=== PATIENT | male | born 1960 | race Two or more races ===

== ENCOUNTER 2016-11-28 11:31 | Day surgery (SDC) | payer OTHER ==
[~2016-11-28 11:31] MED LIST: FENTANYL CITRATE 50 MCG/ML SOL ONE; LIDOCAINE HCL 1% MPF SOL ONE; MIDAZOLAM 2 MG/2 ML SOL ONE; PROPOFOL 10 MG/ML EMU IV ONE
[2016-11-28] MEDS ORDERED: BUPIVACAINE LIPOSOME 20 ML SUS ONE (12:31)
[2016-11-28] MEDS ORDERED: METOCLOPRAMIDE HYDROCHLORIDE 5 MG/ML SOL ONE (13:08)
[2016-11-28] MEDS ORDERED: ONDANSETRON HCL 4 MG/2 ML SOL ONE (13:08)
[2016-11-28] MEDS ORDERED: FENTANYL CITRATE 50 MCG/ML SOL ONE (13:10)
[2016-11-28] MEDS ORDERED: DEXAMETHASONE 20 MG/5 ML (4 MG/ML SOL) ONE (13:12)
[2016-11-28] MEDS ORDERED: HYDROMORPHONE HCL 2 MG/ML 1 ML SOL ONE (13:15)
[2016-11-28] MEDS ORDERED: NALOXONE HYDROCHLORIDE 0.4 MG/ML SOL ONE (14:23)
[2016-11-28 14:43] VITALS: RESP 18
[2016-11-28 15:00] VITALS: TEMP 97.4
[2016-11-28 15:17] VITALS: BP 101/56; PULSE 61; O2SAT 92
== END 2016-11-28 16:40 | disposition home or self-care (01) ==
LOC: SURG 11:31
PROVIDERS: ATTEND Surgery
DX: K60.3 Anal fistula (principal)
CPT/HCPCS: J1100; J1170; J2250; J2310; J2405; J2765; J3010

== ENCOUNTER 2017-09-11 10:29 | Day surgery (SDC) | payer OTHER ==
[2017-09-11] MEDS ORDERED: PROPOFOL 10 MG/ML EMU IV ONE ×2 (10:51→13:14)
[2017-09-11] MEDS ORDERED: FENTANYL 100MCG/2ML SOL ONE (10:51)
[2017-09-11] MEDS ORDERED: MIDAZOLAM 2 MG/2 ML SOL ONE (10:51)
[2017-09-11] MEDS ORDERED: LIDOCAINE HCL 1% MPF SOL ONE (10:51)
[2017-09-11] MEDS ORDERED: ONDANSETRON HCL 4 MG/2 ML SOL ONE (10:55)
[2017-09-11] MEDS ORDERED: BUPIVACAINE/EPI 0.5% 10 ML SOL INFIL ONE (11:54)
[2017-09-11] MEDS ORDERED: BUPIVACAINE LIPOSOME 20 ML SUS ONE (11:54)
[2017-09-11] MEDS ORDERED: NALOXONE HYDROCHLORIDE 0.4 MG/ML SOL ONE (13:14)
[2017-09-11 13:40] VITALS: TEMP 97.8
[2017-09-11 14:36] VITALS: RESP 20; O2SAT 94
[2017-09-11 15:53] VITALS: BP 113/75; PULSE 80
== END 2017-09-11 15:30 | disposition home or self-care (01) ==
LOC: SURG 10:29
PROVIDERS: ATTEND Surgery
DX: K60.3 Anal fistula (principal)
CPT/HCPCS: 46275; J2001; J2250; J2310; J2405; J2704 ×2; J3010 ×2

== ENCOUNTER 2018-06-07 18:48 | Emergency (ER) | payer OTHER ==
[2018-06-07] MEDS ORDERED: CLONIDINE 0.1 MG TAB PO ONE (19:13)
[2018-06-07] MEDS ORDERED: CLONIDINE 0.1 MG TAB ONE (19:15)
[2018-06-07 19:34] LABS: BASOPHILS % (AUTO) 1 % (0-3); EOSINOPHILS % (AUTO) 3 % (0-9); HEMATOCRIT 46 % (39-53); HEMOGLOBIN 15.1 gm/dl (13.5-17.7); LYMPHOCYTES % (AUTO) 35.06 % (10-50); MEAN CORPUSCULAR HEMOGLOBIN 31.4 pg (27.0-32.0); MEAN CORPUSCULAR HGB CONC 32.8 gm/dl (32.0-36.0); MEAN CORPUSCULAR VOLUME 96 fL (80-100); MONOCYTES % (AUTO) 5.8 % (0-12); NEUTROPHILS % (AUTO) 55.8 % (37-80)
[2018-06-07 19:47] LABS: ALBUMIN 3.5 gm/dl (3.4-5.0); BILIRUBIN,TOTAL 0.3 mg/dl (0.2-1.0); CALCIUM 8.3 mg/dl (8.5-10.1); CARBON DIOXIDE 28.9 mEq/L (21-32); CREATININE 1.04 mg/dl (0.80-1.30); POTASSIUM 3.7 mMol/L (3.5-5.1); TOTAL PROTEIN 6.5 gm/dl (6.4-8.2)
[2018-06-07 20:27] VITALS: RESP 12
[2018-06-07 20:29] VITALS: BP 144/96; PULSE 72; TEMP 98.5; O2SAT 99
== END 2018-06-07 20:24 | disposition home or self-care (01) ==
LOC: ED 18:48
DX: I10 Essential (primary) hypertension (principal)
CPT/HCPCS: 36415; 80053; 85025; 93005; 99284; A9270-GY

== ENCOUNTER 2018-11-02 21:38 | Emergency (ER) | payer OTHER ==
[2018-11-02] MEDS ORDERED: NITROGLYCERIN 0.4 MG TAB SL ONE (21:44)
[2018-11-02] MEDS ORDERED: ASPIRIN 81 MG CHEWABLE CTB ONE (21:44)
[2018-11-02] MEDS: NITROGLYCERIN 0.4 MG TAB SL PRN ×3 (21:47→21:58)
[2018-11-02] MEDS ORDERED: SODIUM CHLORIDE 0.9% FLUSH 10 ML SOL IV PRN (21:49)
[2018-11-02] MEDS ORDERED: ASPIRIN 81 MG CHEWABLE CTB PO STA (21:49)
[2018-11-02 21:53] LABS: BASOPHILS % (AUTO) 1 % (0-3); EOSINOPHILS % (AUTO) 3 % (0-9); HEMATOCRIT 47 % (39-53); HEMOGLOBIN 15.6 gm/dl (13.5-17.7); LYMPHOCYTES % (AUTO) 36.9 % (10-50); MEAN CORPUSCULAR HEMOGLOBIN 31.3 pg (27.0-32.0); MEAN CORPUSCULAR HGB CONC 33.5 gm/dl (32.0-36.0); MEAN CORPUSCULAR VOLUME 94 fL (80-100); NEUTROPHILS % (AUTO) 53.8 % (37-80)
[2018-11-02] MEDS ORDERED: SODIUM CHLORIDE 0.9% 1000ML 1,000 ML IV ONE (21:55)
[2018-11-02 22:07] LABS: BLOOD UREA NITROGEN 15 mg/dl (7-18); CALCIUM 8.7 mg/dl (8.5-10.1); CARBON DIOXIDE 26.4 mEq/L (21-32); CHLORIDE 102 mMol/L (98-107); CREATINE KINASE 253 U/L (39-308); CREATININE 1.07 mg/dl (0.80-1.30); GLUCOSE 151 mg/dl (74-106); POTASSIUM 3.2 mMol/L (3.5-5.1); SODIUM 140 mMol/L (136-145); TROP I < 0.017 ng/ml (0.000-0.056)
[2018-11-02 22:11] VITALS: RESP 18; TEMP 98
[2018-11-02] MEDS ORDERED: ACETAMINOPHEN 325 MG PO ONE (22:47)
[2018-11-02] MEDS ORDERED: ACETAMINOPHEN 325 MG ONE (22:49)
[2018-11-02 23:41] VITALS: BP 149/87; PULSE 80; O2SAT 94
== END 2018-11-02 23:18 | disposition home or self-care (01) ==
LOC: ED 21:38
DX: I20.9 Angina pectoris, unspecified (principal); H66.92 Otitis media, unspecified, left ear
CPT/HCPCS: 71045; 80048; 82550; 84484; 85025; 93005; 96365; 99283; 99284; A9270-GY